=== PATIENT | male | born 1960 | race Caucasian/White ===

== ENCOUNTER 2016-11-01 18:37 | Emergency (ER) | payer OTHER ==
[2016-11-01] MEDS ORDERED: NITROGLYCERIN SL PRN (18:52)
[2016-11-01] MEDS ORDERED: ASPIRIN PO STA (18:52)
[2016-11-01 19:14] LABS: MANUAL DIFF NEEDED? NO
--- NOTE | 2016-11-01 19:17 | PROVIDER DOCUMENTATION ---
HPI-Chest Pain <Lali Rock - Last Filed: 11/01/16 21:05> - General Source: patient <Margoth Paulino - Last Filed: 11/03/16 17:09> - General Chief Complaint: Chest Pain Stated Complaint: HEART PROBLEM. URGENT CARE SENT HIM HERE Time Seen by Provider: 11/01/16 19:13 Allergies/Adverse Reactions: Patient Allergies Allergy/AdvReac Type Severity Reaction Status Date / Time Penicillins Allergy HEADACHE Verified 01/28/15 11:52 ketorolac tromethamine * AdvReac Unknown Verified 11/01/16 20:47 [From Toradol] Home Medications: Home Medication List Medication Instructions Recorded Confirmed Last Taken Type Alprazolam [Xanax] 1 mg PO TID 11/01/16 11/01/16 11/01/16 History Lisinopril/Hydrochlorothiazide 1 each PO DAILY 11/01/16 11/01/16 11/01/16 History [Lisinopril-Hctz 20-12.5 mg Tab] - History of Present Illness-CP Nature of Presenting Problem: 56 y/o WM presents to ED from urgent care with hx of CP x 2 days. Pt states L anterior radiating to L axillary and L UE x 2 days. Pt states gotten worse, currently 10/10. Denies any new acitivity, intermittent pain, worse/better with activity or rest. States SOB with exertion. Denies any other sxs. ( Margoth Paulino) Review of Systems - Adult - REVIEW OF SYSTEMS - ADULT Constitutional: reports: no symptoms reported. denies: chills, fever Eyes: reports: no symptoms reported. denies: blurred vision, double vision Ears, Nose, Mouth & Throat: reports: no symptoms reported. denies: ear pain, nose pain Cardiovascular: reports: see HPI, chest pain Respiratory: reports: see HPI, dyspnea on exertion. denies: shortness of breath Gastrointestinal: reports: no symptoms reported. denies: nausea, vomiting Genitourinary: reports: no symptoms reported. denies: dysuria, frequency Musculoskeletal: reports: no symptoms reported. denies: joint pain, joint swelling Integumentary: reports: no symptoms reported. denies: nail changes, rash Neurological: reports: no symptoms reported. denies: numbness, paresthesia Psychiatric: reports: no symptoms reported Endocrine: reports: no symptoms reported. denies: cold intolerance, heat intolerance Hematologic/Lymphatic: reports: no symptoms reported. denies: easy bruising, prolonged bleeding Allergic/Immunologic: reports: no symptoms reported All Other Systems: Reviewed and Negative <Margoth Paulino - Last Filed: 11/03/16 17:09> Past History - Adult - PAST MEDICAL HISTORY-ADULT Review of Records: reports: Nursing Assessment Review, Medications Reviewed Major Childhood Illnesses: reports: denies history Cardiovascular: reports: HTN Respiratory: reports: denies history Gastrointestinal: reports: denies history Obstetrical/Gynecological: reports: denies history Genitourinary: reports: denies history Musculoskeletal: reports: neck/back injury Neurological: reports: denies history Endocrine/Immune: reports: denies history Other Conditions: reports: denies history - PRIOR SURGERIES/PROCEDURES Surgical/Procedure History: reports: back/neck (fusion) - FAMILY HISTORY Family History: reviewed, not pertinent - SOCIAL HISTORY Smoking: cigarettes, greater than 1 pack/day Provider spent 3-5 mins advising pt. on dangers of tobacco.: Discussed manners to quit use, and f/u contacts for add'l counseling. <Alton Paulinoine AzaelKingston - Last Filed: 11/03/16 17:09> Physical Exam-General - PHYSICAL EXAM-ADULT Initial Vital Signs Reviewed: Yes - CONSTITUTIONAL General Appearance: alert, mild distress - EYES Eyes: pink conjunctivae - HEAD, EARS, NOSE, MOUTH & THROAT HENMT: normocephalic/atraumatic, moist mucous membranes - NECK Neck: normal inspection - RESPIRATORY Respiratory: chest non-tender, lungs clear, normal breath sounds. negative: crackles, rales, rhonchi, stridor, wheezing - CARDIOVASCULAR Cardiovascular: regular rate, rhythm. negative: bradycardia, tachycardia - GASTROINTESTINAL (ABDOMEN) Abdominal Exam: normal bowel sounds, non tender, soft. negative: distended, guarding, rigid - MUSCULOSKELETAL Back Exam: normal inspection Extremity: normal gait - SKIN Integumentary: normal color, normal turgor, warm/dry - NEUROLOGIC Neurologic: negative: aphasia - PSYCHIATRIC Psych/Mental Status: normal mood/affect, normal thought content, normal thought process, oriented x 3 <JeffersonAlton limaine AzaelKingston - Last Filed: 11/03/16 17:09> Progress - EKG 1 Time of EKG reading by physician:: 18:47 EKG Read and Signed by:: Jayden Osman EKG Interpretation (*Must complete 3 of following elements*): Normal Rate: 68 Rhythm: NSR Comments: Normal ECG 2 Time of EKG reading by physician:: 20:54 EKG Read and Signed by:: Jayden Osman EKG Interpretation (*Must complete 3 of following elements*): Abnormal Rate: 67 Rhythm: NSR Comments: Abnormal ECG <Lali Rock - Last Filed: 11/01/16 21:05> - XRAY 1 XRAY Study: Chest XRAY Interpretation: No PNA or acute findings <Margoth Paulino - Last Filed: 11/03/16 17:09> - PLAN OF CARE/RESULTS Progress/Plan/Lab Results: Laboratory Tests 11/01/16 11/01/16 11/01/16 18:50 18:50 18:50 WBC 8.35 RBC 5.22 Hgb 16.0 Hct 46.3 MCV 88.7 MCH 30.7 MCHC 34.6 RDW Std Deviation 13.3 Plt Count 193 MPV 11.9 H Immature Gran % (Auto) 0.4 Neut % (Auto) 47.7 Lymph % (Auto) 41.4 [place] % (Auto) 7.9 Eos % (Auto) 1.6 Baso % (Auto) 1.0 H Immature Gran # (Auto) 0.03 Neut # (Auto) 3.99 Lymph # (Auto) 3.46 H [place] # (Auto) 0.66 H Eos # (Auto) 0.13 Baso # (Auto) 0.08 PT INR PTT (Actin FS) D-Dimer < 0.10 Sodium 139 Potassium 3.8 Chloride 100 Carbon Dioxide 22 L Anion Gap 17 BUN 10 Creatinine 0.9 Estimated GFR/1.73 m2 > 60 BUN/Creatinine Ratio 11 Glucose 114 H Calculated Osmolality 277 Calcium 9.5 Magnesium 1.9 Total Bilirubin 0.50 AST 16 ALT 15 Alkaline Phosphatase 103 Creatine Kinase 96 Troponin T Jzy-U-Dmpihumfpnv Pept Total Protein 7.4 Albumin 4.1 Globulin 3.3 Albumin/Globulin Ratio 1.2 11/01/16 11/01/16 11/01/16 18:50 18:50 18:50 WBC RBC Hgb Hct MCV MCH MCHC RDW Std Deviation Plt Count MPV Immature Gran % (Auto) Neut % (Auto) Lymph % (Auto) [place] % (Auto) Eos % (Auto) Baso % (Auto) Immature Gran # (Auto) Neut # (Auto) Lymph # (Auto) [place] # (Auto) Eos # (Auto) Baso # (Auto) PT 10.6 INR 1.01 PTT (Actin FS) 30.4 D-Dimer Sodium Potassium Chloride Carbon Dioxide Anion Gap BUN Creatinine Estimated GFR/1.73 m2 BUN/Creatinine Ratio Glucose Calculated Osmolality Calcium Magnesium Total Bilirubin AST ALT Alkaline Phosphatase Creatine Kinase Troponin T < 0.010 Xvw-D-Pyarsrzxoxj Pept 6 Total Protein Albumin Globulin Albumin/Globulin Ratio 11/01/16 11/01/16 20:40 20:40 WBC RBC Hgb Hct MCV MCH MCHC RDW Std Deviation Plt Count MPV Immature Gran % (Auto) Neut % (Auto) Lymph % (Auto) [place] % (Auto) Eos % (Auto) Baso % (Auto) Immature Gran # (Auto) Neut # (Auto) Lymph # (Auto) [place] # (Auto) Eos # (Auto) Baso # (Auto) PT INR PTT (Actin FS) D-Dimer Sodium Potassium Chloride Carbon Dioxide Anion Gap BUN Creatinine Estimated GFR/1.73 m2 BUN/Creatinine Ratio Glucose Calculated Osmolality Calcium Magnesium Total Bilirubin AST ALT Alkaline Phosphatase Creatine Kinase 94 Troponin T < 0.010 Ldh-Z-Lwkkolsxare Pept Total Protein Albumin Globulin Albumin/Globulin Ratio Orders Category Date Time Status Cardiac Monitoring DIRECTED Care 11/01/16 18:52 Active Saline Loc NOW Care 11/01/16 18:52 Active CHEST-2 VIEWS [RAD] Stat Exams 11/01/16 18:52 Completed CBC WITH ELECTRONIC DIFF [HEME] Stat Lab 11/01/16 18:50 Completed CK PROFILE [SP CHEM] Stat Lab 11/01/16 18:50 Completed CK PROFILE [SP CHEM] Stat Lab 11/01/16 20:40 Completed COMPREHENSIVE METABOLIC PANEL [CHEM] Stat Lab 11/01/16 18:50 Completed D-DIMER [CHEM] Stat Lab 11/01/16 18:50 Completed MAGNESIUM [CHEM] Stat Lab 11/01/16 18:50 Completed PRO B-NATRIURETIC PEPTIDE Stat Lab 11/01/16 18:50 Completed PROTIME WITH INR [COAG] Stat Lab 11/01/16 18:50 Completed PTT [COAG] Stat Lab 11/01/16 18:50 Completed TROPONIN T Stat Lab 11/01/16 18:50 Completed TROPONIN T Stat Lab 11/01/16 20:40 Completed Aspirin Med 11/01/16 18:52 Discontinued 325 mg PO STAT STA Hydrocodone/APAP 7.5 mg/325 mg [Upper Tract-7.5] Med 11/01/16 21:47 Discontinued 1 each PO NOW ONE Ketorolac [Toradol] Med 11/01/16 20:23 Discontinued 60 mg IM NOW ONE Morphine Med 11/01/16 22:01 Discontinued 2 mg IV NOW ONE Nitroglycerin Sl [Nitroglycerin] Med 11/01/16 18:52 Discontinued 0.4 mg SL Q5M PRN PRN Ondansetron Odt [Zofran Odt] Med 11/01/16 21:47 Discontinued 4 mg PO NOW ONE EKG [EKG] Stat Ther 11/01/16 18:52 Draft EKG [EKG] Stat Ther 11/01/16 20:24 Draft Vital Signs Temp Pulse Resp BP Pulse Ox 11/01/16 22:45 85 18 120/84 98 11/01/16 22:19 82 18 123/75 98 11/01/16 21:06 67 18 106/68 98 11/01/16 20:18 75 18 109/70 99 11/01/16 20:09 76 18 124/84 95 11/01/16 20:00 77 18 124/84 99 11/01/16 18:49 97.6 F 70 16 131/91 100 Penicillins Allergy (Verified 01/28/15 11:52) HEADACHE ketorolac tromethamine * [From Toradol] Adverse Reaction (Verified 11/01/16 20: 47) Unknown Alprazolam [Xanax] 1 mg PO TID 11/01/16 Lisinopril/Hydrochlorothiazide [Lisinopril-Hctz 20-12.5 mg Tab] 1 each PO DAILY 11/01/16 NICOTINE DEPENDENCE, CIGARETTES, UNCOMPLICATED (11/01/16) ESSENTIAL (PRIMARY) HYPERTENSION (11/01/16) PAIN IN LEFT ARM (11/01/16) PAIN IN LEFT UPPER ARM (11/01/16) SHORTNESS OF BREATH (11/01/16) OTHER FORMS OF DYSPNEA (11/01/16) CHEST PAIN, UNSPECIFIED (11/01/16) ABNORMAL ELECTROCARDIOGRAM [ECG] [EKG] (11/01/16) TOBACCO ABUSE COUNSELING (11/01/16) OTHER GROUP HOME (CURRENT) DRUG THERAPY (11/01/16) ARTHRODESIS STATUS (11/01/16) Laboratory 11/01/16 11/01/16 11/01/16 20:40 20:40 18:50 WBC RBC Hgb Hct MCV MCH MCHC RDW Std Deviation Plt Count MPV Immature Gran % (Auto) Neut % (Auto) Lymph % (Auto) [place] % (Auto) Eos % (Auto) Baso % (Auto) Immature Gran # (Auto) Neut # (Auto) Lymph # (Auto) [place] # (Auto) Eos # (Auto) Baso # (Auto) PT INR PTT (Actin FS) D-Dimer Sodium Potassium Chloride Carbon Dioxide Anion Gap BUN Creatinine Estimated GFR/1.73 m2 BUN/Creatinine Ratio Glucose Calculated Osmolality Calcium Magnesium Total Bilirubin AST ALT Alkaline Phosphatase Creatine Kinase 94 Troponin T < 0.010 < 0.010 Kzo-O-Seakggrghss Pept Total Protein Albumin Globulin Albumin/Globulin Ratio 11/01/16 11/01/16 11/01/16 18:50 18:50 18:50 WBC RBC Hgb Hct MCV MCH MCHC RDW Std Deviation Plt Count MPV Immature Gran % (Auto) Neut % (Auto) Lymph % (Auto) [place] % (Auto) Eos % (Auto) Baso % (Auto) Immature Gran # (Auto) Neut # (Auto) Lymph # (Auto) [place] # (Auto) Eos # (Auto) Baso # (Auto) PT 10.6 INR 1.01 PTT (Actin FS) 30.4 D-Dimer < 0.10 Sodium Potassium Chloride Carbon Dioxide Anion Gap BUN Creatinine Estimated GFR/1.73 m2 BUN/Creatinine Ratio Glucose Calculated Osmolality Calcium Magnesium Total Bilirubin AST ALT Alkaline Phosphatase Creatine Kinase Troponin T Voy-I-Mjdhsrdbjce Pept 6 Total Protein Albumin Globulin Albumin/Globulin Ratio 11/01/16 11/01/16 18:50 18:50 WBC 8.35 RBC 5.22 Hgb 16.0 Hct 46.3 MCV 88.7 MCH 30.7 MCHC 34.6 RDW Std Deviation 13.3 Plt Count 193 MPV 11.9 H Immature Gran % (Auto) 0.4 Neut % (Auto) 47.7 Lymph % (Auto) 41.4 [place] % (Auto) 7.9 Eos % (Auto) 1.6 Baso % (Auto) 1.0 H Immature Gran # (Auto) 0.03 Neut # (Auto) 3.99 Lymph # (Auto) 3.46 H [place] # (Auto) 0.66 H Eos # (Auto) 0.13 Baso # (Auto) 0.08 PT INR PTT (Actin FS) D-Dimer Sodium 139 Potassium 3.8 Chloride 100 Carbon Dioxide 22 L Anion Gap 17 BUN 10 Creatinine 0.9 Estimated GFR/1.73 m2 > 60 BUN/Creatinine Ratio 11 Glucose 114 H Calculated Osmolality 277 Calcium 9.5 Magnesium 1.9 Total Bilirubin 0.50 AST 16 ALT 15 Alkaline Phosphatase 103 Creatine Kinase 96 Troponin T Fll-T-Yweqzgxvoad Pept Total Protein 7.4 Albumin 4.1 Globulin 3.3 Albumin/Globulin Ratio 1.[address] Osman; states pt can be discharged if free of pain, with f/u to aerial lineman. Pt states pain is better; d/c home with retun precautions and f/u instructions. (Margoth Paulino) Departure <Lali Rock - Last Filed: 11/01/16 21:05> - Departure Time of Disposition Order: 22:45 Certified Medical Emergency: Emergent <Margoth Paulino - Last Filed: 11/03/16 17:09> - Departure DIAGNOSIS: Chest pain Qualifiers: Chest pain type: unspecified Qualified Code(s): R07.9 - Chest pain, unspecified Disposition: HOME 01 Condition: Stable Additional Instructions: ED Follow Up Instructions: You have been treated by a care provider in the Emergency Department. These instructions are being provided to you so you can have an understanding of how to care for yourself upon discharge. Upon discharge from the Emergency Department, you are responsible for making arrangements for follow-up care by a physician of your choice. Take all prescribed medications as directed. Return to the Emergency Department immediately for any new or worsening symptoms. You may call the Physician Referral phone number at [phone] to obtain a list of Physicians who are taking new patients. Referrals: Ambrocio Rios [Primary Care Provider] - Jarrett Burgess MD [STAFF PHYSICIAN] - Instructions: Nonspecific Chest Pain, Fabi-km-Uqmq Attestation - Physician/ SHADI Attestation Patient care was provided by Advanced Practice Provider:: Yes Advanced Practice Provider:: Margoth Paulino Advanced Practice Provider documentation review:: The Mid-level provider documentation, treatment plan and medical decision making was reviewed by the physician who agrees with all treatment and medical decision making by the MLP. <Margoth Paulino - Last Filed: 11/03/16 17:09> Physician Attestation
[2016-11-01 19:23] LABS: EOS# 0.13 X1000 (0.0-0.7); EOS% 1.6 % (0.0-10.0); HEMATOCRIT 46.3 % (42.0-52.0); IMM GRAN# 0.03 X1000 (0.0-0.04); IMM GRAN% 0.4 % (0.0-0.5); LYMPH# 3.46 X1000 (1.2-3.4); LYMPH% 41.4 % (20.5-51.1); MCH 30.7 PG (27-31); MCHC 34.6 g/dL (33-37); MCV 88.7 FL (81-99); MONO# 0.66 X1000 (0.11-0.59); MONO% 7.9 % (1.7-9.3); MPV 11.9 FL (7.4-10.4); NEUT% 47.7 % (42.2-75.2); PLT 193 X1000 (130-400); RBC 5.22 XMIL (4.7-6.1)
[2016-11-01 19:30] LABS: INR 1.01; PROTIME 10.6 Seconds (9.2-11.7); PTT 30.4 Seconds (22.0-36.0)
[2016-11-01 19:48] LABS: AGAP 17; ALBUMIN 4.1 g/dL (3.5-5.0); ALKALINE PHOSPHATASE 103 U/L (32-122); BUN 10 mg/dL (8-22); CALCIUM 9.5 mg/dL (8.8-10.2); CHLORIDE 100 mmol/L (98-107); CK PROFILE 96 U/L (24-204); COSMO 277; GOT 16 U/L (10-34); GPT 15 U/L (10-44); MAGNESIUM 1.9 mg/dL (1.5-2.7); POTASSIUM 3.8 mmol/L (3.5-5.1); SODIUM 139 mmol/L (136-145); TCO2 22 mmol/L (25-35); TOTAL PROTEIN 7.4 g/dL (6.3-8.3)
[2016-11-01] MEDS ORDERED: TORADOL IM ONE (20:23)
[2016-11-01] MEDS ORDERED: NORCO-7.5 PO ONE (21:47)
[2016-11-01] MEDS ORDERED: ZOFRAN ODT PO ONE (21:47)
[2016-11-01] MEDS ORDERED: MORPHINE IV ONE (22:01)
[2016-11-01 23:00] VITALS: BP 120/84
--- NOTE | 2016-11-02 05:24 | EKG Report ---
Test Performed on : 11/01/2016 8:54:19 PM Test Reason : CP Blood Pressure : / mmHG Vent. Rate : 067 BPM Atrial Rate : 067 BPM P-R Int : 164 ms QRS Dur : 074 ms QT Int : 372 ms P-R-T Axes : 049 -01 017 degrees QTc Int : 393 ms Normal sinus rhythm. Inferior infarct , age undetermined Anterior infarct , age undetermined Abnormal ECG When compared with ECG of 01-NOV-2016 18:47, (Unconfirmed) Anterior infarct is now present No significant change was found Unconfirmed Result
--- NOTE | 2016-11-02 05:26 | EKG Report ---
Test Performed on : 11/01/2016 6:47:56 PM Test Reason : Chest Pain Blood Pressure : / mmHG Vent. Rate : 068 BPM Atrial Rate : 068 BPM P-R Int : 172 ms QRS Dur : 094 ms QT Int : 388 ms P-R-T Axes : 069 005 030 degrees QTc Int : 412 ms Normal sinus rhythm. Normal ECG No previous ECGs available Unconfirmed Result
--- NOTE | 2016-11-02 08:13 | Diag Imaging Result Document ---
PROCEDURE NAME: CHEST-2 VIEWS - 11/01/2016 FRONTAL AND LATERAL CHEST, TWO VIEWS: COMPARISON: Compared to 05/04/2013. FINDINGS: The lungs are well expanded. The heart is not enlarged. The vessels are not distended. No pneumonia. No pleural effusions. There has been prior surgery to the lower neck. Mild scoliosis. No free air beneath the diaphragm. IMPRESSION: No acute abnormality.
== END 2016-11-01 23:01 | disposition home or self-care (01) ==
LOC: ED 18:37
DX: R07.9 Chest pain, unspecified (principal); R94.31 Abnormal electrocardiogram [ECG] [EKG]; M79.622 Pain in left upper arm; M79.602 Pain in left arm; R06.02 Shortness of breath; R06.09 Other forms of dyspnea; I10 Essential (primary) hypertension; Z98.1 Arthrodesis status; Z79.899 Other long term (current) drug therapy; F17.210 Nicotine dependence, cigarettes, uncomplicated; Z71.6 Tobacco abuse counseling
CPT/HCPCS: 71020; 80053; 82550; 83735; 83880; 84484; 85025; 85379; 85610; 85730; 93005; 96374; J1885; J2270

== ENCOUNTER 2019-07-11 10:59 | Inpatient (IN) ==
--- NOTE | 2019-07-11 11:23 | EKG Report ---
Test Performed on : 07/11/2019 11:16:24 AM Test Reason : sob Blood Pressure : / mmHG Vent. Rate : 108 BPM Atrial Rate : 108 BPM P-R Int : 152 ms QRS Dur : 086 ms QT Int : 330 ms P-R-T Axes : 075 -03 033 degrees QTc Int : 442 ms Sinus tachycardia. Inferior infarct (cited on or before 01-NOV-2016) Cannot rule out Anterior infarct (cited on or before 01-NOV-2016) Abnormal ECG When compared with ECG of 19-OCT-2018 13:54, QRS axis shifted right Questionable change in initial forces of Inferior leads Unconfirmed Result
--- NOTE | 2019-07-11 11:40 | Diag Imaging Result Doc PS360 ---
CHEST-1 VIEW - 07/11/2019 INDICATION: sob COMPARISON: 04/03/2019 FINDINGS: Lung volumes are lower. There are hazy interstitial infiltrates in the lung bases bilaterally. Heart size remains top normal. No pneumothorax or significant pleural effusion. IMPRESSION: Bibasilar interstitial infiltrates suggesting mild pulmonary edema or bronchitis. Electronically signed by David Hartmann 07/11/2019 11:38 AM
[2019-07-11] MEDS ORDERED: NS 1,000 ML IV ONE ×2 (11:42→12:58)
[2019-07-11 11:51] LABS: BASO# 0.05 X1000 (0.0-0.2); BASO% 0.3 % (0.0-0.8); EOS# 0.11 X1000 (0.0-0.7); EOS% 0.6 % (0.0-10.0); HEMATOCRIT 40.9 % (42.0-52.0); IMM GRAN# 0.07 X1000 (0.0-0.04); IMM GRAN% 0.4 % (0.0-0.5); LYMPH# 1.62 X1000 (1.2-3.4); LYMPH% 8.4 % (20.5-51.1); MCH 30.8 PG (27-31); MCHC 34.2 g/dL (33-37); MCV 90.1 FL (81-99); MONO# 1.67 X1000 (0.11-0.59); MONO% 8.6 % (1.7-9.3); MPV 10.1 FL (7.4-10.4); NEUT# 15.86 X1000 (1.4-6.5); NEUT% 81.7 % (42.2-75.2); PLT 282 X1000 (130-400); RBC 4.54 XMIL (4.7-6.1); RDW 14.1 % (11.5-14.5); WBC 19.38 X1000 (4.8-10.8)
[2019-07-11 11:58] LABS: INR 1.03; PROTIME 13.6 Seconds (11.0-16.0); PTT 30.3 Seconds (22.3-41.8)
[2019-07-11] MEDS ORDERED: DUONEB (A & A) INH ONE (12:12)
[2019-07-11 12:20] LABS: ALLEN TEST NO; BE -3.4 mmoll (-3.0-3.0); BLOOD TYPE ARTERIAL; HCO3-(ACT) 22.2 mmoll (20.0-26.0); O2(CT) 18.6 mL/dL (15.0-23.0); O2HB 94.9 % (95.0-99.0); PCO2(98.6) 32 mmHg (35-45); PO2(98.6) 82 mmHg (60-100); SAMPLE BLOOD; SAO2 97.5 % (95.0-100.0); THB 13.9 g/dL (11.5-17.4); pH(98.6) 7.41 (7.35-7.45)
[2019-07-11 12:22] LABS: MODALITY CANNULA
[2019-07-11 12:29] LABS: ALB/GLOB RATIO 1.2; ALBUMIN 3.5 g/dL (3.5-5.0); CALCIUM 9.1 mg/dL (8.8-10.2); CREATININE 1.3 mg/dL (0.7-1.2); POTASSIUM 4.8 mmol/L (3.5-5.1); TOTAL BILIRUBIN 0.65 mg/dL (0.20-1.00); TOTAL PROTEIN 6.4 g/dL (6.3-8.3)
[2019-07-11] MEDS ORDERED: LEVAQUIN 500 MG/D5W 500 MG/100 ML IVPB IV ONE (12:41)
[2019-07-11] MEDS ORDERED: NS 500 ML IV ONE (13:23)
[2019-07-11] MEDS ORDERED: VANCOMYCIN 1 GM/NS 1 GM/250 ML IVPB IV ONE ×2 (13:23→16:00)
--- NOTE | 2019-07-11 14:15 | Diag Imaging Result Doc PS360 ---
EXAM: CT ANGIOGRM PULMONARY ARTERIES 07/11/2019 HISTORY: sob TECHNIQUE: This exam was performed using automated exposure control, adjustment of mA or kV according to patient size, and/or use of iterative reconstruction technique. COMMENT: 3-D MIPS were performed. There are groundglass opacities scattered in the right upper lobe. There is tree-in-bud opacity in the right middle lobe and both lower lobes with denser patchy alveolar opacity in the latter. There is also tree-in-bud opacity throughout the lingula and lower portion of the left upper lobe. Compared to 10/19/2018 the lower lobe opacities are worse in the tree-in-bud opacities were not present previously. The groundglass opacities in the right upper lobe were not clearly present previously. No filling defects are demonstrated in the pulmonary arteries. There are atherosclerotic calcifications and noncalcified plaque in the thoracic aorta. There is no evidence of dissection. The ascending aorta measures a maximum of 3.8 cm in transverse dimension. There is no evidence of significant adenopathy. There are no abnormal fluid collections. There are postsurgical changes in the lower cervical spine. There is no evidence of acute bony abnormality. No evidence of acute disease is demonstrated in the visualized portions of the abdomen. IMPRESSION: Bilateral bronchopneumonia. No evidence of pulmonary emboli. Advise follow-up until clear. Electronically signed by Jermaine Hagan 07/11/2019 2:13 PM
[2019-07-11 14:46] LABS: URINE SOURCE CLEAN CATCH
[2019-07-11 14:51] LABS: BILIRUBIN URINE NEGATIVE (NEGATIVE); BLOOD URINE NEGATIVE (NEGATIVE); COLOR YELLOW; GLUCOSE URINE NEGATIVE (NEGATIVE); KETONE URINE NEGATIVE (NEGATIVE); LEUKOCYTES URINE NEGATIVE (NEGATIVE); NITRITE URINE NEGATIVE (NEGATIVE); PROTEIN URINE NEGATIVE (NEGATIVE); SP GRAVITY URINE 1.022; TURBIDITY URINE CLEAR (CLEAR); UR EPITHELIAL CELLS <10 /HPF (<10); URINE BACTERIA NEGATIVE /HPF; URINE RBC <10 /HPF (<10); URINE WBC <10 /HPF (<10); UROBILINOGEN URINE NORMAL (NORMAL)
--- NOTE | 2019-07-11 15:03 | EKG Report ---
Test Performed on : 07/11/2019 12:07:15 PM Test Reason : ED. NO EKG ORDER FOR MUSE Blood Pressure : / mmHG Vent. Rate : 084 BPM Atrial Rate : 084 BPM P-R Int : 162 ms QRS Dur : 092 ms QT Int : 366 ms P-R-T Axes : 060 003 017 degrees QTc Int : 432 ms Normal sinus rhythm. Possible Inferior infarct (cited on or before 01-NOV-2016) T wave abnormality, consider anterior ischemia Abnormal ECG When compared with ECG of 11-JUL-2019 11:16, (Unconfirmed) Minimal criteria for Anterior infarct are no longer present Unconfirmed Result
--- NOTE | 2019-07-11 15:16 | PROVIDER DOCUMENTATION ---
This chart was entered by Heather Booth Scribe, acting as scribe for Dennis Umaña MD. HPI-Respiratory General - General Chief Complaint: SEPSIS ALERT - D Stated Complaint: SOB Time Seen by Provider: 07/11/19 11:06 Source: patient Allergies/Adverse Reactions: Patient Allergies Allergy/AdvReac Type Severity Reaction Status Date / Time Penicillins Allergy HEADACHE Verified 10/19/18 14:25 ketorolac tromethamine * AdvReac Unknown Verified 10/19/18 14:25 [From Toradol] Home Medications: Home Medication List Medication Instructions Recorded Confirmed Last Taken Type Benzonatate 1 cap PO TID 07/11/19 07/11/19 Unknown History Ciprofloxacin HCl 500 mg PO BID 07/11/19 07/11/19 Unknown History Dexamethasone 2 mg PO BID 07/11/19 07/11/19 Unknown History Dexlansoprazole [Dexilant] 60 mg PO DAILY 07/11/19 07/11/19 Unknown History Levetiracetam 500 mg PO BID 07/11/19 07/11/19 Unknown History Lisinopril/Hydrochlorothiazide 1 tab PO DAILY 07/11/19 07/11/19 Unknown History [Lisinopril-Hctz 20-12.5 mg Tab] Venlafaxine HCl 1 tab PO DAILY 07/11/19 07/11/19 Unknown History - History of Present Illness-Resp Nature of Presenting Problem: Patient is a 59 year old male who presents to the ED via EMS with shortness of breath. States cough with shortness of breath. Report being diagnosed with pneumonia 3 days ago. States he is currently on cancer treatments for brain cancer. Reports chest pain with cough. Quality of Pain: reports: aching Severity in ED: reports: mild Onset/Duration: reports: gradual Timing: reports: still present, getting worse Cough Quality/Degree: reports: moderate, productive cough, sputum Current Respiratory Medication Therapy: Initiated see nurses note Modifying Factors: worse with: exertion, coughing Associated Symptoms: reports: chest pain/soreness, cough, shortness of breath Similar Symptoms Previously?: Yes Recently seen or treated by another doctor?: Yes Review of Systems - Adult - REVIEW OF SYSTEMS - ADULT Constitutional: reports: no symptoms reported. denies: chills, fever, fatique Eyes: reports: no symptoms reported Ears, Nose, Mouth & Throat: reports: no symptoms reported Cardiovascular: reports: see HPI, chest pain. denies: irregular heart rate, palpitations Respiratory: reports: see HPI, cough, shortness of breath. denies: wheezing Gastrointestinal: reports: no symptoms reported Genitourinary: reports: no symptoms reported Musculoskeletal: reports: no symptoms reported Integumentary: reports: no symptoms reported Neurological: reports: no symptoms reported Psychiatric: reports: no symptoms reported Endocrine: reports: no symptoms reported Hematologic/Lymphatic: reports: no symptoms reported Allergic/Immunologic: reports: no symptoms reported All Other Systems: Reviewed and Negative Past History - Adult - PAST MEDICAL HISTORY-ADULT Review of Records: reports: Old Records Reviewed, Nursing Assessment Review, Medications Reviewed, Social history reviewed & non-contributory. Major Childhood Illnesses: reports: denies history Cardiovascular: reports: HTN, hyperlipidemia Respiratory: reports: COPD Gastrointestinal: reports: GERD Obstetrical/Gynecological: reports: denies history Genitourinary: reports: denies history Musculoskeletal: reports: neck/back injury Neurological: reports: cancer/tumor (cancer), Seizures/Epilepsy Psychiatric: reports: depression Endocrine/Immune: reports: denies history Other Conditions: reports: denies history - PRIOR SURGERIES/PROCEDURES Surgical/Procedure History: reports: reviewed, not pertinent, back/neck (fusion) - IMMUNIZATION STATUS Childhood Immunizations: See Nurse Assessment Flu Vaccine: See Nurse Assessment - FAMILY HISTORY Family History: reviewed, not pertinent - SOCIAL HISTORY Smoking: cigarettes (recently quit) Substance Use: denies Physical Exam-General - PHYSICAL EXAM-ADULT Initial Vital Signs Reviewed: Yes - CONSTITUTIONAL General Appearance: alert, mild distress. negative: lethargic - RESPIRATORY Respiratory: chest non-tender, respiratory distress (mild), rhonchi (bilateral), wheezing (bilateral) - CARDIOVASCULAR Cardiovascular: normal peripheral pulses, tachycardia. negative: systolic murmur - GASTROINTESTINAL (ABDOMEN) Abdominal Exam: normal bowel sounds, non tender, soft. negative: rigid - SKIN Integumentary: normal color, normal turgor, warm/dry. negative: cyanosis - NEUROLOGIC Neurologic: grossly normal. negative: aphasia, facial droop - PSYCHIATRIC Psych/Mental Status: oriented x 3. negative: paranoid, tearful Progress - PLAN OF CARE/RESULTS Progress/Plan/Lab Results: Vital Signs - 8 hr 07/11/19 11:15 07/11/19 11:16 07/11/19 11:19 Temperature 98.2 F Pulse Rate 112 H Respiratory Rate 24 Blood Pressure 79/51 78/49 78/57 O2 Sat by Pulse Oximetry 89 L 93 L 93 L 07/11/19 11:20 07/11/19 11:46 07/11/19 12:09 Temperature 98.2 F Pulse Rate 105 H 91 H 63 Respiratory Rate 27 H 12 24 Blood Pressure 79/51 76/52 O2 Sat by Pulse Oximetry 93 L 92 L 94 L 07/11/19 12:16 07/11/19 12:31 07/11/19 12:46 Temperature Pulse Rate 42 L 88 69 Respiratory Rate 20 25 H 22 Blood Pressure 87/48 86/49 88/56 O2 Sat by Pulse Oximetry 100 07/11/19 13:01 07/11/19 13:14 07/11/19 13:16 Temperature 97.9 F Pulse Rate 75 75 77 Respiratory Rate 20 24 23 Blood Pressure 104/53 83/50 87/52 O2 Sat by Pulse Oximetry 93 L 99 07/11/19 13:31 07/11/19 13:56 07/11/19 14:01 Temperature Pulse Rate 81 91 H 83 Respiratory Rate 26 H 27 H 27 H Blood Pressure 95/59 85/63 93/57 O2 Sat by Pulse Oximetry 97 98 97 07/11/19 14:12 07/11/19 14:15 07/11/19 14:16 Temperature Pulse Rate 85 79 75 Respiratory Rate 18 25 H 25 H Blood Pressure 79/53 88/58 88/51 O2 Sat by Pulse Oximetry 99 07/11/19 14:41 07/11/19 14:46 07/11/19 15:01 Temperature Pulse Rate 73 80 68 Respiratory Rate 28 H 21 18 Blood Pressure 94/47 83/50 91/53 O2 Sat by Pulse Oximetry 07/11/19 15:16 07/11/19 15:46 Temperature Pulse Rate 78 67 Respiratory Rate 14 16 Blood Pressure 94/62 98/61 O2 Sat by Pulse Oximetry 07/11/19 11:58 - Final Sputum Laboratory Results - last 24 hr 07/11/19 07/11/19 07/11/19 11:35 11:35 11:35 WBC 19.38 H RBC 4.54 L Hgb 14.0 Hct 40.9 L MCV 90.1 MCH 30.8 MCHC 34.2 RDW Std Deviation 14.1 Plt Count 282 MPV 10.1 Immature Gran % (Auto) 0.4 Neut % (Auto) 81.7 H Lymph % (Auto) 8.4 L Nelson % (Auto) 8.6 Eos % (Auto) 0.6 Baso % (Auto) 0.3 Immature Gran # (Auto) 0.07 H Neut # (Auto) 15.86 H Lymph # (Auto) 1.62 Nelson # (Auto) 1.67 H Eos # (Auto) 0.11 Baso # (Auto) 0.05 PT 13.6 INR 1.03 PTT (Actin FS) 30.3 Specimen Type Sample Site pH pCO2 pO2 HCO3 Base Excess Oxyhemoglobin ABG O2 Sat (Calculated) ABG O2 Saturation ABG Carboxyhemoglobin ABG Methemoglobin Bhupendra Test A-a O2 Difference Total Hemoglobin Lactate Liter Flow Blood Gas Modality FiO2 % Sodium 132 L Potassium 4.8 Chloride 93 L Carbon Dioxide 17 L Anion Gap 22 BUN 30 H Creatinine 1.3 H Estimated GFR/1.73 m2 57 BUN/Creatinine Ratio 23 Glucose 138 H Calculated Osmolality 273 Calcium 9.1 Total Bilirubin 0.65 AST 22 ALT 11 Alkaline Phosphatase 110 Creatine Kinase 136 Troponin T [id number]-I-Zrxwyeoscib Pept Total Protein 6.4 Albumin 3.5 Globulin 2.9 Albumin/Globulin Ratio 1.2 Plasma Lactate Urine Source Urine Color Urine Turbidity Urine pH Ur Specific Bath Urine Protein Ur Glucose (Stick) Ur Ketones (Stick) Urine Blood Urine Nitrite Urine Bilirubin Urobilinogen Dipstick Urine Leukocytes Urine WBC (Auto) Urine RBC (Auto) U Epithel Cells (Auto) Urine Bacteria (Auto) 07/11/19 07/11/19 07/11/19 11:35 11:35 11:35 WBC RBC Hgb Hct MCV MCH MCHC RDW Std Deviation Plt Count MPV Immature Gran % (Auto) Neut % (Auto) Lymph % (Auto) Nelson % (Auto) Eos % (Auto) Baso % (Auto) Immature Gran # (Auto) Neut # (Auto) Lymph # (Auto) Nelson # (Auto) Eos # (Auto) Baso # (Auto) PT INR PTT (Actin FS) Specimen Type Sample Site pH pCO2 pO2 HCO3 Base Excess Oxyhemoglobin ABG O2 Sat (Calculated) ABG O2 Saturation ABG Carboxyhemoglobin ABG Methemoglobin Bhupendra Test A-a O2 Difference Total Hemoglobin Lactate Liter Flow Blood Gas Modality FiO2 % Sodium Potassium Chloride Carbon Dioxide Anion Gap BUN Creatinine Estimated GFR/1.73 m2 BUN/Creatinine Ratio Glucose Calculated Osmolality Calcium Total Bilirubin AST ALT Alkaline Phosphatase Creatine Kinase Troponin T < 0.010 [id number]-Y-Xbrdoiqkszw Pept 107 Total Protein Albumin Globulin Albumin/Globulin Ratio Plasma Lactate 3.4 H Urine Source Urine Color Urine Turbidity Urine pH Ur Specific Bath Urine Protein Ur Glucose (Stick) Ur Ketones (Stick) Urine Blood Urine Nitrite Urine Bilirubin Urobilinogen Dipstick Urine Leukocytes Urine WBC (Auto) Urine RBC (Auto) U Epithel Cells (Auto) Urine Bacteria (Auto) 07/11/19 07/11/19 07/11/19 12:15 14:28 14:43 WBC RBC Hgb Hct MCV MCH MCHC RDW Std Deviation Plt Count MPV Immature Gran % (Auto) Neut % (Auto) Lymph % (Auto) Nelson % (Auto) Eos % (Auto) Baso % (Auto) Immature Gran # (Auto) Neut # (Auto) Lymph # (Auto) Nelson # (Auto) Eos # (Auto) Baso # (Auto) PT INR PTT (Actin FS) Specimen Type ARTERIAL Sample Site R BRACHIAL pH 7.41 pCO2 32 L pO2 82 HCO3 22.2 Base Excess -3.4 L Oxyhemoglobin 94.9 L ABG O2 Sat (Calculated) 18.6 ABG O2 Saturation 97.5 ABG Carboxyhemoglobin 1.70 ABG Methemoglobin 1.0 Bhupendra Test NO A-a O2 Difference 106.0 Total Hemoglobin 13.9 Lactate 2.30 H Liter Flow 3.0 Blood Gas Modality CANNULA FiO2 % 32.0 Sodium Potassium Chloride Carbon Dioxide Anion Gap BUN Creatinine Estimated GFR/1.73 m2 BUN/Creatinine Ratio Glucose Calculated Osmolality Calcium Total Bilirubin AST ALT Alkaline Phosphatase Creatine Kinase Troponin T Osx-P-Hyhsywhfojl Pept Total Protein Albumin Globulin Albumin/Globulin Ratio Plasma Lactate 4.9 H* Urine Source CLEAN CATCH Urine Color YELLOW Urine Turbidity CLEAR Urine pH 6.0 Ur Specific Bath 1.022 Urine Protein NEGATIVE Ur Glucose (Stick) NEGATIVE Ur Ketones (Stick) NEGATIVE Urine Blood NEGATIVE Urine Nitrite NEGATIVE Urine Bilirubin NEGATIVE Urobilinogen Dipstick NORMAL Urine Leukocytes NEGATIVE Urine WBC (Auto) <10 Urine RBC (Auto) <10 U Epithel Cells (Auto) <10 Urine Bacteria (Auto) NEGATIVE Orders Category Date Time Status Admit - [facility] Routine AdmDCTranf 07/11/19 15:34 Active Activity - Up with Assistance ORDERED Care 07/11/19 15:34 Active Cardiac Monitoring DIRECTED Care 07/11/19 11:06 Active IV Insertion ORDERED Care 07/11/19 11:06 Completed Intake and Output-Strict ORDERED Care 07/11/19 15:34 Active Notify MD of + Sepsis Screen NOW Care 07/11/19 11:06 Active Notify Physician As Ordered Care 07/11/19 11:06 Active Z-Document. for Tele Applied ORDERED Care 07/11/19 15:35 Active CHEST-1 VIEW [RAD] Stat Exams 07/11/19 11:[address] ANGIOGRM PULMONARY ARTERIES [CT] Stat Exams 07/11/19 12:59 Completed ABG [RESP] Routine Lab 07/11/19 12:15 Completed BLOOD CULTURE [BLDCUL] Stat Lab 07/11/19 11:35 Results CBC WITH DIFF [HEME] Routine Lab 07/12/19 06:00 Ordered CBC WITH DIFF [HEME] Stat Lab 07/11/19 11:35 Completed CK PROFILE [SP CHEM] Stat Lab 07/11/19 11:35 Completed COMPREHENSIVE METABOLIC PANEL [CHEM] Routine Lab 07/12/19 06:00 Ordered COMPREHENSIVE METABOLIC PANEL [CHEM] Stat Lab 07/11/19 11:35 Completed LACTATE, PLASMA [CHEM] Q3H Lab 07/11/19 11:35 Completed LACTATE, PLASMA [CHEM] Q3H Lab 07/11/19 14:28 Completed LACTATE, PLASMA [CHEM] Q3H Lab 07/11/19 17:18 Completed MAGNESIUM [CHEM] Routine Lab 07/12/19 06:00 Ordered PRO B-NATRIURETIC PEPTIDE Stat Lab 07/11/19 11:35 Completed PROTIME WITH INR [COAG] Stat Lab 07/11/19 11:35 Completed PTT [COAG] Stat Lab 07/11/19 11:35 Completed SPUTUM CULTURE WITH GRAM STAIN [RM] Routine Lab 07/11/19 11:58 Results TROPONIN T Stat Lab 07/11/19 11:35 Completed URINALYSIS W/POSS RFLX CULT [URINALYSIS] Stat Lab 07/11/19 14:43 Completed 0.9% Sodium Chloride Inj [Ns] 1,000 ml Med 07/11/19 11:42 Discontinued IV 999 mls/hr 0.9% Sodium Chloride Inj [Ns] 1,000 ml Med 07/11/19 12:58 Discontinued IV 999 mls/hr 0.9% Sodium Chloride Inj [Ns] 500 ml Med 07/11/19 13:23 Discontinued IV 999 mls/hr Acetaminophen [Tylenol] Med 07/11/19 15:36 Active 650 mg PO Q6H PRN PRN Albuterol 2.5MG/Ipratrop 0.5MG [Duoneb (A & A)] Med 07/11/19 12:12 Discontinued 3 ml INH NOW ONE Albuterol 2.5MG/Ipratrop 0.5MG [Duoneb (A & A)] Med 07/11/19 15:37 Active 3 ml INH Q2H PRN PRN Albuterol 2.5MG/Ipratrop 0.5MG [Duoneb (A & A)] Med 07/11/19 19:30 Active 3 ml INH RTQ4H Dextrose 5%-0.45% NaCl Inj [D5 1/2 Ns] 250 ml Med 07/11/19 15:45 Active Norepinephrine [Levophed] 8 mg IV As Directed mls/hr Levofloxacin 500 mg/D5w [Levaquin 500 mg/D5w] Med 07/11/19 12:41 Discontinued 500 mg in 100 ml IV NOW Levofloxacin 500 mg/D5w [Levaquin 500 mg/D5w] Med 07/12/19 13:00 Discontinued 500 mg in 100 ml IV Q24H Ondansetron [Zofran] Med 07/11/19 15:36 Active 4 mg IV Q4H PRN PRN Pantoprazole [Protonix] Med 07/11/19 15:45 Active 40 mg IV Q24H Pharmacy Order [Vancomycin IV Per Pharmacy] Med 07/11/19 15:45 Discontinued 1 each MISC DIRECTED Sodium Chloride 0.9% Med 07/11/19 15:45 Active 10 ml INJ DIRECTED Vancomycin 1 gm/Ns Med 07/11/19 13:23 Discontinued 1 gm in 250 ml IV NOW Vancomycin 1 gm/Ns Med 07/11/19 16:00 Discontinued 1 gm in 250 ml IV NOW Aerosol Treatments Routine Oth 07/11/19 12:12 Completed Aerosol Treatments Routine Oth 07/11/19 15:37 Active Aerosol Treatments Stat Oth 07/11/19 12:12 Completed Oxygen Device Stat Ot 07/11/19 11:06 Completed Telemetry [OM.EQ] Routine Oth 07/11/19 15:34 Active EKG [EKG] Stat Ther 07/11/19 11:07 Draft EKG [EKG] Stat Ther 07/11/19 12:07 Draft Transfer/Admit Order [TRANSFER] Routine Transfer 07/11/19 15:38 Completed Result Diagrams: 07/11/19 11:35 07/11/19 11:35 - EKG 1 Time of EKG reading by physician:: 11:16 EKG Read and Signed by:: Dennis Umaña EKG Interpretation (*Must complete 3 of following elements*): Abnormal (cannot rule out anterior infarct, age undetermined) Rate: 108 Rhythm: sinus tachycardia Tyler: normal HI Interval: normal Comments: inferior infarct, age undetermined; 2 Time of EKG reading by physician:: 12:07 EKG Read and Signed by:: Dennis Umaña EKG Interpretation (*Must complete 3 of following elements*): Abnormal (T wave abnormality, consider anterior ischemia) Rate: 84 Rhythm: normal sinus rhythm Tyler: normal HI Interval: normal Comments: possible inferior infarct, age undetermined; - XRAY 1 XRAY Study: Chest Impression: See EMR Report (CHEST-1 VIEW - 07/11/2019 INDICATION: sob COMPARISON: 04/03/2019 FINDINGS: Lung volumes are lower. There are hazy interstitial infiltrates in the lung bases bilaterally. Heart size remains top normal. No pneumothorax or significant pleural effusion. IMPRESSION: Bibasilar interstitial infiltrates suggesting mild pulmonary edema or bronchitis. Electronically signed by David Hartmann 07/11/2019 11:38 AM 07/11/19 1138 Interpreting Physician: David Hartmann MD Dictated Date/Time: 07/11/19 1133 cc: Dennis Umaña MD; Madonna Nance MD) - CT/MRI 1 CT Study: Angiogram Impression: See EMR Report ( EXAM: CT ANGIOGRM PULMONARY ARTERIES 07/11/2019 HISTORY: sob TECHNIQUE: This exam was performed using automated exposure control, adjustment of mA or kV according to patient size, and/or use of iterative reconstruction technique. COMMENT: 3-D MIPS were performed. There are groundglass opacities scattered in the right upper lobe. There is t ree-in-bud opacity in the right middle lobe and both lower lobes with denser patchy alveolar opacity in the latter. There is also tree-in-bud opacity throughout the lingula and lower portion of the left upper lobe. Compared to 10/19/2018 the lower lobe opacities are worse in the tree-in-bud opacities were not present previously. The groundglass opacities in the right upper lobe were not clearly present previously. No filling defects are demonstrated in the pulmonary arteries. There are atherosclerotic calcifications and noncalcified plaque in the thoracic aorta. There is no evidence of dissection. The ascending aorta measures a maximum of 3.8 cm in transverse dimension. There is no evidence of significant adenopathy. There are no abnormal fluid collections. There are postsurgical changes in the lower cervical spine. There is no evidence of acute bony abnormality. No evidence of acute disease is demonstrated in the visualized portions of the abdomen. IMPRESSION: Bilateral bronchopneumonia. No evidence of pulmonary emboli. Advise follow-up until clear. Electronically signed by Jermaine Hagan 07/11/2019 2:13 PM 07/11/19 1413 Interpreting Physician: Jermaine Hagan MD Dictated Date/Time: 07/11/19 1409 cc: Dennis Umaañ MD; Madonna Nance MD) - CONSULTS/PCP/HOSPITALIST Notification #1 *Consult/PCP/Hospitalist*: SARAVANAN Thomas for Hospitalist Time Discussed: 13:20 Reason/Comments: Dr. Umaña consulted with Martha about patient Consult Disposition: other (call back with CT result) #2 Consult: SARAVANAN Thomas for Hospitalist Time Discussed: 14:52 Reason/Comments: Dr. Umaña consulted with Martha about patient Consult Disposition: Will see in ED, Admit Departure - Departure Date of Disposition Decision: 07/11/19 Time of Disposition Decision: 13:21 DIAGNOSIS: Sepsis, Hypoxia, Renal insufficiency, Pneumonia Disposition: ADMITTED INPATIENT 09 Certified Medical Emergency: Emergent Condition: Fair - Critical Care Note This patient required my direct & personal management of CC.: Yes Total Time (mins): 36 Critical Care Statement: This patient required my direct personal management to treat or rule out processes, the absence of which, could potentiallly result in sudden, clinically significant life or limb threatening deterioration. Attestation - Physician/ SHADI Attestation Patient care was provided by Advanced Practice Provider:: No The physician spent face to face time with patient:: Yes Advanced Practice Provider documentation review:: Supervising physician onsite and consulted in the evaluation and care of this patient. The physician did have a face to face encounter with the patient. This chart was documented by the indicated scribe, (Heather Booth Scribe) and accurately reflects the services I performed and decisions made by me, Dennis Umaña MD, as attested by the provider's signature.
--- NOTE | 2019-07-11 15:17 | SEPSIS: TISSUE PERFUSION ASSMT ---
Sepsis: Tissue Perfusion Assga - Physical Exam Assessment Date: 07/11/19 Time Assessment Initialized: 15:16 Vital Signs: Last Vital Signs Temp 97.9 F 07/11/19 13:14 Pulse 79 07/11/19 14:16 Resp 25 H 07/11/19 14:16 BP 88/51 07/11/19 14:16 Pulse Ox 99 07/11/19 14:12 Height 5 ft 7 in Weight 72.575 kg Lung Sounds:: wheezing Heart Sounds:: Regular Peripheral Pulse Evaluation:: radial (R): 4+, radial (L): 4+, dorsalis-pedis (R): 4+, dorsalis-pedis (L): 4+ Skin Exam:: turgor good - Impression Impression:: Tissue Perfusion Adequate - Plan Plan:: See Orders
[2019-07-11] MEDS ORDERED: ZOFRAN IV PRN (15:36)
[2019-07-11] MEDS ORDERED: TYLENOL PO PRN (15:36)
[2019-07-11] MEDS ORDERED: DUONEB (A & A) INH PRN (15:37)
[2019-07-11] MEDS ORDERED: SODIUM CHLORIDE 0.9% INJ SCH (15:45)
[2019-07-11] MEDS ORDERED: LEVOPHED 8 MG in D5 1/2 NS 250 ML IV SCH (15:45)
[2019-07-11] MEDS ORDERED: VANCOMYCIN IV PER PHARMACY MISC SCH (15:45)
[2019-07-11] MEDS: PROTONIX IV SCH (17:12)
[2019-07-11] MEDS: MERREM 1 GM in NS 50 ML IV SCH (17:45)
[2019-07-11] MEDS: NS 1,000 ML IV SCH (18:15)
[2019-07-11 18:46] LABS: AGAP 15; ALBUMIN 2.8 g/dL (3.5-5.0); BUN 24 mg/dL (8-22); CALCIUM 8.3 mg/dL (8.8-10.2); CHLORIDE 100 mmol/L (98-107); COSMO 270; CREATININE 1.1 mg/dL (0.7-1.2); ESTIMATED GFR > 60; GLUCOSE 93 mg/dL (70-104); PHOSPHORUS 3.3 mg/dL (2.7-4.5); POTASSIUM 3.6 mmol/L (3.5-5.1); SODIUM 133 mmol/L (136-145); TCO2 18 mmol/L (25-35)
[2019-07-11] MEDS: DUONEB (A & A) INH SCH ×2 (19:49→23:50)
[2019-07-11] MEDS: ZYVOX 600 MG/D5W 600 MG/300 ML IVPB IV SCH (20:13)
--- NOTE | 2019-07-11 20:49 | HISTORY AND PHYSICAL ---
CHIEF COMPLAINT: Shortness of breath. HISTORY OF PRESENT ILLNESS: This is a 59-year-old gentleman with a history of hypertension, COPD, gastroesophageal reflux disease, brain tumor, seizure disorder, who presents to the emergency room via EMS complaining of shortness of breath and a cough. Reportedly, the patient was diagnosed with pneumonia 3 days prior. He received Cipro for antibiotic coverage. Symptoms have progressed, prompting his emergency room visit for further evaluation. The patient does have a brain tumor. Reportedly, he is undergoing chemotherapy and radiation. At the time of my exam, there are no family members present and the patient is unable to give a history. He does have difficulty finding his words, and is unable to name positions or describe treatments. PAST MEDICAL HISTORY: 1. COPD. 2. Hypertension. 3. Hyperlipidemia. 4. Back pain. 5. Glioblastoma s/p chemotherapy and radiation 6. Seizure disorder. PAST SURGICAL HISTORY: Back surgery. SOCIAL HISTORY: Unable to obtain. REVIEW OF SYSTEMS: Unable to obtain. ALLERGIES: Per the chart, penicillin which causes a headache and Toradol with unknown reaction. HOME MEDICATIONS: Unable to obtain at present. PHYSICAL EXAMINATION: GENERAL: This is a 59-year-old gentleman who is sitting up on the stretcher in the emergency room in no distress. VITAL SIGNS: Blood pressure is 101/56, with a heart rate of 64, respirations are 18, temperature is 97.9 degrees, with O2 saturations 94 to 95 percent. HEENT: Head is normocephalic, atraumatic. Mucous membranes are moist. NECK: Supple with trachea midline. No JVD. CARDIOVASCULAR: Regular rate and rhythm. He is tachycardic. S1 and S2 appreciated. Calves are nontender bilaterally with peripheral pulses palpable x4 extremities. PULMONARY: Rhonchi with expiratory wheezes scattered throughout. Chest rises and falls symmetric to respiration. GASTROINTESTINAL: Abdomen is soft, nontender, nondistended, with bowel sounds in all 4 quadrants. NEUROLOGIC: He is alert. He is awake. It is difficult to check orientation. He does know he is at a hospital in [place]. LABORATORY AND DIAGNOSTIC DATA: WBC is 19.3, with hemoglobin 14, hematocrit 40.9, and platelets 282,000. Sodium is 133, potassium 4.8, BUN 30, creatinine 1.3, with a glucose of 138. Lactate is 3.4, pH 7.41, pCO2 of 32, PO2 of 82, and bicarbonate 22. Blood cultures are pending. Sputum culture is pending. Chest x-ray reveals bibasilar interstitial infiltrates suggesting mild pulmonary edema or bronchitis. CTA pulmonary: Bilateral bronchopneumonia. No evidence of pulmonary emboli. ASSESSMENT AND PLAN: 1. Bilateral bronchopneumonia. Blood cultures have been obtained. continue IV hydration, antibiotic coverage of Merrem and Zyvox, incentive spirometer every 4 hours. Any further antibiotics will be culture driven. 2. Sepsis secondary to bilateral lobe pneumonia. Will start IV fluids and broad spectrum antibiotics. 3. Acute kidney injury. Will check urine studies and start IV fluids. 4. Glioblastoma s/p chemotherapy and radiation. Aware. He is being treated in [place] by radiation oncology and medical oncology. Patient was evaluated with Dr. Blankenship and plan was discussed with Dr. Blankenship. Further treatments pending hospital course. Dictated by SARAVANAN Valencia for Margoth Blankenship MD cc: SARAVANAN Valencia MD I performed a face to face encounter on the patient. I reviewed all labs and imaging on the patient. I agree with the H&P as dictated. is a 59 year old male with a history of glioblastoma s/p chemotherapy and radiation who was admitted with sepsis secondary to bilateral lobe pneumonia. The is currently undergoing treatment for glioblastoma in [place]. On exam, the patient is lethargic but does answer questions. He has diffuse rhonchi on auscultation. No peripheral edema. The patient will be admitted to the ICU and started on broad spectrum antibiotics, and IV fluids. Will follow up the blood cultures. Sputum culture with gram stain was ordered. Will call the patient's family to get more information on his treatment for the glioblastoma. [facility]
[2019-07-12] MEDS: MERREM 1 GM in NS 50 ML IV SCH ×3 (00:54→16:22)
[2019-07-12] MEDS ORDERED: NEO-SYNEPHRINE 50 MG in NS 250 ML IV SCH (02:00)
[2019-07-12] MEDS: NS 1,000 ML IV SCH ×2 (02:47→14:15)
[2019-07-12] MEDS: DUONEB (A & A) INH SCH ×6 (03:38→23:35)
[2019-07-12 06:09] LABS: BASO# 0.03 X1000 (0.0-0.2); BASO% 0.4 % (0.0-0.8); EOS# 0.12 X1000 (0.0-0.7); EOS% 1.4 % (0.0-10.0); HEMATOCRIT 35.5 % (42.0-52.0); HEMOGLOBIN 11.7 g/dL (14.0-18.0); IMM GRAN# 0.03 X1000 (0.0-0.04); IMM GRAN% 0.4 % (0.0-0.5); LYMPH% 10.7 % (20.5-51.1); MCH 30.8 PG (27-31); MCV 93.4 FL (81-99); MONO# 0.76 X1000 (0.11-0.59); MPV 9.9 FL (7.4-10.4); NEUT# 6.58 X1000 (1.4-6.5); NEUT% 78.1 % (42.2-75.2); PLT 205 X1000 (130-400); RDW 14.2 % (11.5-14.5); WBC 8.42 X1000 (4.8-10.8)
[2019-07-12 06:30] LABS: ALB/GLOB RATIO 1.1; ALBUMIN 3.2 g/dL (3.5-5.0); CALCIUM 9.1 mg/dL (8.8-10.2); CREATININE 1.3 mg/dL (0.7-1.2); MAGNESIUM 1.7 mg/dL (1.5-2.7); POTASSIUM 3.9 mmol/L (3.5-5.1); TOTAL BILIRUBIN 0.55 mg/dL (0.20-1.00)
[2019-07-12] MEDS: LOVENOX SUBQ SCH (06:41)
--- NOTE | 2019-07-12 07:25 | Diag Imaging Result Doc PS360 ---
EXAM: CHEST-1 VIEW HISTORY: pneumonia TECHNIQUE: Single view COMPARISON: 07/11/2019 FINDINGS: The lungs are well expanded. The heart is not enlarged. The vessels are not distended. There are small bilateral infiltrates. No effusion identified. There has been surgery to the lower neck. IMPRESSION: Mild interval improvement Electronically signed by Tru Drake 07/12/2019 7:23 AM
[2019-07-12] MEDS ORDERED: DECADRON PO SCH (09:45)
[2019-07-12] MEDS ORDERED: XANAX PO PRN (09:55)
[2019-07-12] MEDS: SOLU-MEDROL IV SCH ×3 (10:13→22:30)
[2019-07-12] MEDS: ZYVOX 600 MG/D5W 600 MG/300 ML IVPB IV SCH ×2 (10:13→20:16)
[2019-07-12] MEDS: XANAX PO PRN ×3 (11:05→20:15)
--- NOTE | 2019-07-12 11:05 | PROGRESS NOTE ---
DATE: 07/12/2019 INTERVAL HISTORY: He was started on intravenous norepinephrine and intravenous phenylephrine. However, he did not tolerate both of those medications. Apparently, his pulse had decreased to 30s and he had started feeling really, really short of breath within 30 minutes into the infusions, so both the infusions were held. In the morning time, he states he is feeling much better than yesterday. However, he still has shortness of breath and cough which bothers him. SUBJECTIVE: He states he was diagnosed with left-sided brain cancer recently and is receiving treatment at [facility], but has not been able to keep up the appointment recently because he has been sick. He is an active tobacco abuser. OBJECTIVE: Vital signs: Temperature 97.6 degrees, pulse 69, respiratory rate 27, blood pressure 106/52. He is saturating on 3 L nasal cannula about 98%. PHYSICAL EXAMINATION: General: Not in any acute distress. HEENT: Oral cavity is moist. Lungs: He has decreased air entry bilateral infrascapular region with inspiratory crackles and expiratory wheezes. Cardiovascular: S1, S2 normal. No murmur, rub or gallop. Abdomen: Soft, nontender. Extremity: No lower extremities edema. Neurologic: He is alert and oriented x3. LABORATORY DATA: Suggestive of improvement of leukocytosis. Normal hemoglobin. He does have acute kidney injury, lactic acidosis. MICROBIOLOGY: Sputum culture and blood culture are in lab. IMAGING: Chest x-ray suggests mild interval improvement. Pulmonary arteriogram yesterday had bilateral bronchopneumonia and followup was advised. ASSESSMENT AND PLAN: 1. Septic shock due to bilateral bronchopneumonia. Follow up blood cultures, sputum culture results. Continue intravenous linezolid and meropenem considering his immunocompromised status He became bradycardic and had started feeling short of breath after infusion of intravenous norepinephrine and phenylephrine. I will consider starting him on either intravenous dopamine or intravenous vasopressin. Currently, his blood pressure is okay. I will monitor it. 2. Acute chronic obstructive pulmonary disease exacerbation to bilateral bronchopneumonia. He would be counseled about smoking cessation. Continue albuterol ipratropium nebulization and start patient on intravenous steroids. 3. Lactic acidosis: He was hypotensive overnight which could be contributing to his lactic acidosis. Currently, his MAP have been >60 mmHg. He is alert and oriented and eating well without nausea and vomiting. I will give him 1 L of bolus IV fluids and continue IV fluids at current rate and insert Wright for close input and output. Follow up lactate tomorrow morning. 3. Recent history of left-sided brain cancer on chemotherapy. I will keep him on his home Keppra. 4. Disposition. Patient's condition is critical. I will continue to monitor patient inside the hospital. TIME SPENT: More than 30 minutes of critical care time was spent in the care of this patient. cc: Levi Dalton MD MTDViktoria
[2019-07-12] MEDS: KEPPRA PO SCH ×2 (11:06→20:15)
[2019-07-12] MEDS ORDERED: LEVAQUIN 500 MG/D5W 500 MG/100 ML IVPB IV SCH (13:00)
[2019-07-12] MEDS ORDERED: VANCOMYCIN 1,450 MG in NS 250 ML IV SCH (15:00)
[2019-07-12] MEDS: PROTONIX IV SCH (15:21)
[2019-07-12] MEDS ORDERED: NS 1,000 ML IV ONE (18:42)
--- NOTE | 2019-07-12 20:23 | ECHO REPORT ---
ORDER DATE: 07/12/2019 MEASUREMENTS: Septal thickness 0.9, left ventricular internal diameter end diastole 5.5, posterior wall thickness 1.0, left ventricular internal diameter end systole 3.6, aortic root 3.3, left atrium 3.3. SUMMARY: 1. Technically difficult study due to limited acoustic window quality. 2. Aortic valve is trileaflet and opens normally on 2-dimensional images. Peak gradient across the valve is approximately 10 mmHg. Mitral and tricuspid valves are without evidence of structural abnormality while pulmonic valve is not well demonstrated. The aortic root is normal in size. 3. Normal left ventricular dimension is demonstrated. The estimated left ejection fraction appears to be at least 65%. No regional wall motion abnormalities are evident. Left atrium, right atrium and right ventricle are normal in size with grossly preserved right ventricular systolic function. 4. No pericardial effusion. 5. Appearance of inferior vena cava suggests normal central venous pressure. CONCLUSIONS: 1. Technically difficult study. 2. No significant valvular abnormality demonstrated. 3. Normal left ventricular systolic function without regional wall motion abnormality evident. cc: MD Margoth Meza MD
[2019-07-13] MEDS: MERREM 1 GM in NS 50 ML IV SCH ×3 (01:06→17:13)
[2019-07-13] MEDS: NS 1,000 ML IV SCH ×2 (01:14→10:09)
[2019-07-13] MEDS: SOLU-MEDROL IV SCH ×3 (03:11→16:17)
[2019-07-13] MEDS: DUONEB (A & A) INH SCH ×4 (03:49→15:26)
[2019-07-13] MEDS: LOVENOX SUBQ SCH (05:41)
[2019-07-13 05:50] LABS: ALLEN TEST YES; BE -5.7 mmoll (-3.0-3.0); BLOOD TYPE ARTERIAL; HCO3-(ACT) 20.5 mmoll (20.0-26.0); METHB 0.8 % (0.0-1.5); O2(CT) 16.3 mL/dL (15.0-23.0); O2HB 97.6 % (95.0-99.0); PCO2(98.6) 26 mmHg (35-45); PO2(98.6) 166 mmHg (60-100); SAMPLE BLOOD; SAO2 99.9 % (95.0-100.0); THB 11.6 g/dL (11.5-17.4); pH(98.6) 7.43 (7.35-7.45)
[2019-07-13 05:51] LABS: MODALITY ROOM AIR
[2019-07-13 06:33] LABS: AGAP 17; BUN 11 mg/dL (8-22); CALCIUM 8.9 mg/dL (8.8-10.2); CHLORIDE 109 mmol/L (98-107); COSMO 289; ESTIMATED GFR > 60; GLUCOSE 176 mg/dL (70-104); POTASSIUM 3.3 mmol/L (3.5-5.1); SODIUM 143 mmol/L (136-145); TCO2 17 mmol/L (25-35)
[2019-07-13 06:34] LABS: ALB/GLOB RATIO 1.1; ALBUMIN 3.1 g/dL (3.5-5.0); ALKALINE PHOSPHATASE 78 U/L (32-122); DIRECT BILIRUBIN < 0.10 mg/dL (0.00-0.20); GOT 9 U/L (10-34); GPT 8 U/L (10-44); TOTAL BILIRUBIN < 0.15 mg/dL (0.20-1.00); TOTAL PROTEIN 5.9 g/dL (6.3-8.3)
[2019-07-13] MEDS: KEPPRA PO SCH (08:01)
[2019-07-13] MEDS: XANAX PO PRN ×2 (08:01→12:51)
[2019-07-13] MEDS: ZYVOX 600 MG/D5W 600 MG/300 ML IVPB IV SCH (08:02)
[2019-07-13 08:21] LABS: BASO# 0.01 X1000 (0.0-0.2); BASO% 0.1 % (0.0-0.8); HEMATOCRIT 34.1 % (42.0-52.0); HEMOGLOBIN 11.5 g/dL (14.0-18.0); IMM GRAN# 0.04 X1000 (0.0-0.04); IMM GRAN% 0.2 % (0.0-0.5); LYMPH# 0.42 X1000 (1.2-3.4); LYMPH% 2.3 % (20.5-51.1); MCH 30.8 PG (27-31); MCHC 33.7 g/dL (33-37); MCV 91.4 FL (81-99); MONO# 0.64 X1000 (0.11-0.59); MONO% 3.5 % (1.7-9.3); MPV 10.2 FL (7.4-10.4); NEUT# 17.03 X1000 (1.4-6.5); NEUT% 93.9 % (42.2-75.2); PLT 238 X1000 (130-400); RBC 3.73 XMIL (4.7-6.1); RDW 14.1 % (11.5-14.5); WBC 18.14 X1000 (4.8-10.8)
[2019-07-13] MEDS ORDERED: KLOR-CON PO ONE (09:23)
[2019-07-13] MEDS ORDERED: MUCOMYST 20% INH ONE (09:44)
[2019-07-13 09:45] LABS: LYMPHS 1 % (21-51); MONO 3 % (1-9); SEGS 96 % (42-75)
[2019-07-13] MEDS ORDERED: TUSSIONEX LIQUID PO ONE (09:54)
[2019-07-13] MEDS ORDERED: NORCO-5 PO PRN (09:59)
[2019-07-13] MEDS ORDERED: SOLU-MEDROL IV SCH (10:00)
[2019-07-13] MEDS ORDERED: MUCINEX PO SCH (10:00)
--- NOTE | 2019-07-13 11:45 | Diag Imaging Result Doc PS360 ---
EXAM: CT HEAD W/O CONTRAST HISTORY: encephalopathy/headache TECHNIQUE: CT head without contrast COMPARISON: None. FINDINGS: There is acute left temporal hemorrhage. This is likely a combination of parenchymal and subarachnoid hemorrhage. The total area measures approximately 3.5 cm in diameter. 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 No mass identified on this noncontrasted exam. No hydrocephalus. Moderate maxillary, ethmoid, and sphenoid mucosal thickening. 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 This exam was performed using automated exposure control, adjustment of mA or kV according to patient size, and/or use of iterative reconstruction technique. Electronically signed by Tru Drake 07/13/2019 11:43 AM
--- NOTE | 2019-07-13 12:32 | Diag Imaging Result Doc PS360 ---
EXAM: CHEST-PORTABLE HISTORY: pneumonia TECHNIQUE: Single view COMPARISON: 07/12/2019 FINDINGS: The lungs are well expanded. The heart is not enlarged. The vessels are not distended. There are no infiltrates. No effusion identified. Mild scoliosis. There has been surgery to the lower neck. IMPRESSION: No definite pneumonia. Follow-up PA and lateral may be beneficial. Electronically signed by Tru Drake 07/13/2019 12:29 PM
[2019-07-13 16:16] VITALS: BP 107/62
[2019-07-13] MEDS: PROTONIX IV SCH (16:17)
--- NOTE | 2019-07-13 18:44 | DISCHARGE SUMMARY ---
ADMISSION DATE: 07/11/2019 DISCHARGE DATE: FINAL DISCHARGE DIAGNOSIS: 1. Acute left temporal hemorrhage. 2. Sepsis. 3. Pneumonia. 4. Acute sinusitis. 5. Glioblastoma status post chemotherapy and radiation therapy. 6. Tobacco dependence. 7. Chronic obstructive pulmonary disease exacerbation. 8. Seizure disorder. IMAGIN. Portable chest x-ray performed on 07/11/2019 that revealed bibasilar interstitial infiltrates. 2. Pulmonary arteriogram performed on 07/11/2019 that revealed bilateral bronchopneumonia. 3. Echocardiogram performed on 07/12/2019 that revealed an ejection fraction of 65%. No pericardial effusion. 4. A head CT performed on 07/13/2019 that revealed left temporal hemorrhage. 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 Sinusitis. HOSPITAL COURSE: Mr. David is a 59-year-old male with a history of glioblastoma on chemotherapy and radiation therapy who presented to the ER with a chief complaint of shortness of breath and general malaise. On admission a chest x-ray was done that revealed pulmonary edema and possibly pneumonia. The patient underwent a pulmonary arteriogram that revealed bilateral lobe pneumonia and the patient was admitted to the hospitalist service. Blood and sputum cultures were obtained and an influenza screen was performed. The patient was also started on broad-spectrum antibiotics. The patient was started on aggressive IV fluid hydration. An echocardiogram was done that revealed an ejection fraction of 65%. At the time of this dictation, the patient's blood and sputum cultures remain negative. The patient was also noted to have a chronic obstructive pulmonary disease exacerbation and started on IV steroids. The patient was noted to be slightly confused this morning and so a stat head CT was done that revealed an acute left temporal hemorrhage, likely a combination of parenchymal and subarachnoid hemorrhage. These findings were discussed with the neurosurgeon control analyst at [facility], Dr. Lamb who stated that he would see the patient in consultation once the patient got to [facility]. I discussed the case with the hospitalist control analyst, Dr. Lyons who accepted the patient in transfer. The patient was ultimately transferred to [facility] on 07/13/2019 for further treatment and evaluation. This was discussed with the patient's family and they were in agreement with transfer to [facility]. cc: Margoth Blankenship MD
[2019-07-13] MEDS ORDERED: MUCOMYST 20% INH SCH (19:30)
== END 2019-07-13 17:00 | disposition short-term general hospital (02) | DRG 871 ==
LOC: SUPCPDRO → ED 10:59 → ICU 15:55 → SUATTDRO 15:55
PROVIDERS: ATTEND Internal Medicine